=== PATIENT | male | born 1960 | race Hispanic/Latino ===

== ENCOUNTER 2023-08-09 12:22 | Emergency (ER) | payer BC, OTHER ==
[2023-08-09 13:23] LABS: Absolute Basophils 0.1 K/uL (0-0.5); Absolute Lymphocytes (CBC) 1.3 K/uL (0.7-4.9); Absolute Monocytes 0.5 K/uL (0.1-1.3); Absolute Neutrophil 5.9 K/uL (1.8-8.0); Basophils % 0.7 % (0-1.3); Eosinophils % 0.5 % (0-4.4); Hematocrit 43.6 % (39.6-49.0); Hemoglobin 14.9 g/dL (13.6-17.9); Lymphocytes % 16.8 % (15.3-44.8); MCH 30.5 pg (27.0-35.0); MCHC 34.2 g/dL (32.0-36.0); MCV 89.2 fL (80-100); MPV 7.9 fL (7.6-11.3); Monocytes % 6.9 % (3.3-12.3); Neutrophils % 75.1 % (41.7-73.7); Platelets 245 thou/uL (152-406); RBC Red Blood Cell Count 4.89 M/uL (4.33-5.43); Red Cell Distribution Width 13.4 % (12.1-15.2)
[2023-08-09 13:43] LABS: Albumin 3.8 g/dL (3.4-5.0); Albumin/Globulin Ratio 1.2 (1.1-1.8); Anion Gap 7.2 mEq/L (5.0-15.0); Bilirubin Direct 0.2 mg/dL (0-0.2); Bilirubin Indirect, Calculated 0.9 mg/dL (0.2-0.8); Bilirubin Total 1.1 mg/dL (0.2-1.0); Globulin 3.1 g/dL (2.3-3.5); Magnesium 2.1 mg/dL (1.6-2.4); Potassium 4.2 mEq/L (3.5-5.1); Protein, Total 6.9 g/dL (6.4-8.2); Troponin High Sensitivity 4.2 pg/mL (<58.9)
--- NOTE | 2023-08-09 13:45 | ER ---
Nurse's Notes [facility] Name: Joe Caballero Age: 62 yrs Sex: Male : 1960 Arrival Date: 08/09/2023 Time: 12:22 Bed 16 Private MD: Diagnosis: Lightheadedness, nausea resolved Presentation: 08/08 12:44 Chief complaint: EMS states: Toned out for lightheadedness, nausea and headache. pr1 Coronavirus screen: Vaccine status: Patient reports receiving the 2nd dose of the covid vaccine. Ebola Screen: No symptoms or risks identified at this time. Initial Sepsis Screen: Does the patient meet any 2 criteria? No. Patient's initial sepsis screen is negative. Does the patient have a suspected source of infection? No. Patient's initial sepsis screen is negative. Risk Assessment: Do you want to hurt yourself or someone else? Patient reports no desire to harm self or others. Onset of symptoms was August 09, 2023. 12:44 Method Of Arrival: EMS: [place] [id number] 12:44 Acuity: ONUR 3 [facility] 12:55 Care prior to arrival: Medication(s) given: Normal saline infusion, 400 ml zofran 4 mg. pr1 Triage Assessment: 12:47 General: Appears comfortable, well groomed, well developed, well nourished, Behavior is me1 calm, cooperative, appropriate for age, Reports became lightheaded at work then c/o headache and nausea. Given 400ml of NS and zofran 4 mg. Symptoms have resolved. Pain: Denies pain. 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 Cardiovascular: Patient's skin is warm and dry. Respiratory: Airway is patent Respiratory effort is even, unlabored, Respiratory pattern is regular, symmetrical. GI: Reports nausea. : No signs and/or symptoms were reported regarding the genitourinary system. Derm: Skin is intact, Skin is pink, warm \T\ dry. Musculoskeletal: No signs and/or symptoms reported regarding the musculoskeletal system. Historical: - Allergies: 12:47 No Known Allergies; me1 - Home Meds: 12:47 None [Active]; me1 - PMHx: 12:47 prostate cancer; me1 - PSHx: 12:47 prostatectomy; me1 - Immunization history:: Adult Immunizations up to date. - Infectious Disease History:: Denies. - Social history:: Smoking status: Patient denies any tobacco usage or history of. Screenin:56 [facility] ED Fall Risk Assessment (Adult) History of falling in the last 3 months, me1 including since admission No falls in past 3 months (0 pts) Confusion or Disorientation No (0 pts) Intoxicated or Sedated No (0 pts) Impaired Gait No (0 pts) Mobility Assist Device Used No (0 pt) Altered Elimination No (0 pt) Score/Fall Risk Level 0 - 2 = Low Risk Maintained a safe environment, Provided non-skid footwear, Hourly rounding (assess needs \T\ fall precautionary measures) done. Abuse screen: Denies threats or abuse. Nutritional screening: No deficits noted. Tuberculosis screening: No symptoms or risk factors identified. 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 Symptoms have resolved at this time. Pain: Denies pain. 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 . Cardiovascular: Capillary refill < 3 seconds Patient's skin is warm and dry. Respiratory: Airway is patent Respiratory effort is even, unlabored, Respiratory pattern is regular, symmetrical. GI: Reports nausea. GI: Abdomen is round non-distended. : No signs and/or symptoms were reported regarding the genitourinary system. Derm: Skin is intact, is healthy with good turgor, Skin is pink, warm \T\ dry. Musculoskeletal: No signs and/or symptoms reported regarding the musculoskeletal system. 14:05 Reassessment: Patient appears in no apparent distress at this time. Patient is alert, as6 oriented x 3, equal unlabored respirations, skin warm/dry/pink. Vital Signs: 12:44 BP 131 / 82; Pulse 61; Resp 18; Temp 98.4(O); Pulse Ox 95% ; Weight 81.65 kg; Height 5 me1 ft. 6 in. ; Pain 0/10; 13:08 BP 125 / 81 Supine; Pulse 60 LA; me1 13:09 BP 142 / 85 Sitting; Pulse 64; me1 13:10 BP 147 / 87 Standing; Pulse 64; me1 13:55 BP 122 / 93; Pulse 62; Resp 16; Pulse Ox 96% on R/A; me1 12:44 Body Mass Index 29.05 (81.65 kg, 167.64 cm) me1 12:44 Pain Scale: Adult pr1 ED Course: 12:43 Patient arrived in ED. me1 12:43 Jony Sky MD is Attending Physician. sp3 12:47 Triage completed. me1 12:47 Arm band placed on Patient placed in an exam room. me1 12:56 Patient has correct armband on for positive identification. Bed in low position. Call [facility] light in reach. Side rails up X 1. Provided Education on: POC. Verbalized understanding. . 12:56 Maintain EMS IV. Dressing intact. Good blood return noted. Site clean \T\ dry. Gauge \T\ me 1 site: 18g LAC. 12:56 No provider procedures requiring assistance completed. me1 13:13 Mayela Carrillo, RN is Primary Nurse. me1 13:13 Initial lab(s) drawn, by pr, sent to lab. me1 13:13 Basic Metabolic Panel Sent. me1 13:13 CBC with Diff Sent. me1 13:13 LFT's Sent. me1 13:13 Magnesium Sent. me1 13:13 Troponin HS Sent. me1 13:23 EKG done, by ED staff, reviewed by Jony Sky MD. me1 14:04 IV discontinued, intact, bleeding controlled, No redness/swelling at site. Pressure as6 dressing applied. Administered Medications: No medications were administered Medication: 12:56 VIS not applicable for this client. me1 Outcome: 13:44 Discharge ordered by . sp3 14:04 Discharged to home ambulatory, as6 14:04 Condition: stable 14:04 Discharge instructions given to patient, Instructed on discharge instructions, follow up and referral plans. Demonstrated understanding of instructions, follow-up care, 14:05 Patient left the ED. as6 Signatures: Jony Sky MD MD sp3 Darwin Lloyd, RN RN as6 Mayela Carrillo, RN RN me1
--- NOTE | 2023-08-09 13:45 | EDPHYS ---
Physician Documentation [facility] Name: Joe Caballero Age: 62 yrs Sex: Male : 1960 Arrival Date: 08/09/2023 Time: 12:22 Bed 16 Private MD: ED Physician Jony Sky HPI: 08/08 13:30 This 62 yrs old Male presents to ER via EMS with complaints of LIGHTHEADED, sp3 Nausea. 13:30 62-year-old male with history of prior prostate cancer not on any active treatments sp3 presents with chief complaint nausea and lightheadedness that started early this morning. 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 He states he has had decreased p.o. intake and increased coffee and tea recently. He denies any headache, fever, URI symptoms, chest pain, shortness of breath, abdominal pain, actual vomiting, diarrhea, syncope, focal neurological deficit or any other signs or symptoms on ROS at this time. He also denies any prolonged immobilization or travel history or known sick contacts.. Historical: - Allergies: 12:47 No Known Allergies; me1 - Home Meds: 12:47 None [Active]; me1 - PMHx: 12:47 prostate cancer; me1 - PSHx: 12:47 prostatectomy; me1 - Immunization history:: Adult Immunizations up to date. - Infectious Disease History:: Denies. - Social history:: Smoking status: Patient denies any tobacco usage or history of. ROS: 13:32 Constitutional: Negative for fever, chills, and weight loss, Eyes: Negative for injury, sp3 pain, redness, and discharge, Neck: Negative for injury, pain, and swelling, Cardiovascular: Negative for chest pain, palpitations, and edema, Respiratory: Negative for shortness of breath, cough, wheezing, and pleuritic chest pain, Back: Negative for injury and pain, : Negative for injury, bleeding, discharge, and swelling, MS/Extremity: Negative for injury and deformity, Skin: Negative for injury, rash, and discoloration, Neuro: Negative for headache, weakness, numbness, tingling, and seizure, Psych: Negative for depression, anxiety, suicide ideation, homicidal ideation, and hallucinations, Allergy/Immunology: Negative for hives, rash, and allergies, Endocrine: Negative for neck swelling, polydipsia, polyuria, polyphagia, and marked weight changes, Hematologic/Lymphatic: Negative for swollen nodes, abnormal bleeding, and unusual bruising, 13:32 All other systems are negative, Exam: 13:32 Constitutional: This is a well developed, well nourished patient who is awake, alert, sp3 and in no acute distress. Head/Face: Normocephalic, atraumatic. Eyes: Pupils equal round and reactive to light, extra-ocular motions intact. Lids and lashes normal. Conjunctiva and sclera are non-icteric and not injected. Cornea within normal limits. Periorbital areas with no swelling, redness, or edema. ENT: Nares patent. No nasal discharge, no septal abnormalities noted. External auditory canals are clear. Oropharynx with no redness, swelling, or masses, exudates, or evidence of obstruction, uvula midline. Mucous membranes moist. Neck: Trachea midline, no thyromegaly or masses palpated, and no cervical lymphadenopathy. Supple, full range of motion without nuchal rigidity, or vertebral point tenderness. No Meningismus. Chest/axilla: Normal chest wall appearance and motion. Nontender with no deformity. No lesions are appreciated. Cardiovascular: Regular rate and rhythm with a normal S1 and S2. No gallops, murmurs, or rubs. Normal PMI, no JVD. No pulse deficits. Respiratory: Lungs have equal breath sounds bilaterally, clear to auscultation and percussion. No rales, rhonchi or wheezes noted. No increased work of breathing, no retractions or nasal flaring. Abdomen/GI: Soft, non-tender, with normal bowel sounds. No distension or tympany. No guarding or rebound. No evidence of tenderness throughout. Back: No spinal tenderness. No costovertebral tenderness. Full range of motion. Skin: Warm, dry with normal turgor. Normal color with no rashes, no lesions, and no evidence of cellulitis. MS/ Extremity: Pulses equal, no cyanosis. Neurovascular intact. Full, normal range of motion. Neuro: Awake and alert, GCS 15, oriented to person, place, time, and situation. Cranial nerves II-XII grossly intact. Motor strength 5/5 in all extremities. Sensory grossly intact. Cerebellar exam normal. Normal gait. Psych: Awake, alert, with orientation to person, place and time. Behavior, mood, and affect are within normal limits. 13:32 ECG was reviewed by the Attending Physician. EKG demonstrates normal sinus rhythm at 61 bpm with normal intervals, normal axis, normal QRS, normal ST's ST segments without evidence of acute ischemia. Vital Signs: 12:44 BP 131 / 82; Pulse 61; Resp 18; Temp 98.4(O); Pulse Ox 95% ; Weight 81.65 kg; Height 5 me1 ft. 6 in. ; Pain 0/10; 13:08 BP 125 / 81 Supine; Pulse 60 LA; me1 13:09 BP 142 / 85 Sitting; Pulse 64; me1 13:10 BP 147 / 87 Standing; Pulse 64; me1 13:55 BP 122 / 93; Pulse 62; Resp 16; Pulse Ox 96% on R/A; me1 12:44 Body Mass Index 29.05 (81.65 kg, 167.64 cm) me1 12:44 Pain Scale: Adult me1 MDM: 12:46 Patient medically screened. sp3 13:32 Data reviewed: vital signs, nurses notes, lab test result(s), EKG. ED course: sp3 62-year-old male with lightheadedness and nausea not fully resolved. EKG is normal. Orthostatic vital signs are also normal. If workup is negative on blood work then we will safely discharge him home after his current normal saline 1 L is finished. Patient feels much better at this time. Clinically have ruled out acute coronary syndrome, TIA/CVA spectrum, sepsis, shock or any other critical pathology. Patient well-appearing and is asking to be discharged.. 08/08 12:46 Order name: Basic Metabolic Panel; Complete Time: 13:44 sp3 08/08 12:46 Order name: CBC with Diff; Complete Time: 13:44 3 08/08 12:46 Order name: LFT's; Complete Time: 13:44 3 08/08 12:46 Order name: Magnesium; Complete Time: 13:44 3 08/08 12:46 Order name: Troponin HS; Complete Time: 13:44 sp3 08/08 12:46 Order name: Cardiac monitoring; Complete Time: 13:23 3 08/08 12:46 Order name: EKG - Nurse/Tech; Complete Time: 13:23 sp3 08/08 12:46 Order name: IV Saline Lock; Complete Time: 13:13 sp3 08/08 12:46 Order name: Labs collected and sent; Complete Time: 13:13 sp3 08/08 12:46 Order name: O2 Sat Monitoring; Complete Time: 13:13 sp3 08/08 12:46 Order name: Orthostatics; Complete Time: 13:24 sp3 Administered Medications: No medications were administered Disposition Summary: 08/09/23 13:44 Discharge Ordered Notes: Location: Home sp3 Condition: Stable sp3 Diagnosis - Lightheadedness, nausea resolved sp3 Followup: sp3 - With: Private Physician - When: Upon discharge from the Emergency Department - Reason: Continuance of care Discharge Instructions: - Discharge Summary Sheet sp3 - Dehydration, Adult sp3 Forms: - Medication Reconciliation Form sp3 - Thank You Letter sp3 - Antibiotic Education sp3 - Prescription Opioid Use sp3 - Patient Portal Instructions sp3 - Leadership Thank You Letter sp3 - Work release form as6 Signatures: Dispatcher [employer] EDJony Sherman MD MD sp3 Mayela Carrillo RN RN me1 Corrections: (The following items were deleted from the chart) 12:47 12:47 BASIC METABOLIC PANEL+C.LAB.BRZ ordered. EDMS EDMS 12:47 12:47 CBC+H.LAB.BRZ ordered. EDMS EDMS 12:47 12:47 HEPATIC FUNCTION+C.LAB.BRZ ordered. EDMS EDMS 12:47 12:47 MAGNESIUM+C.LAB.BRZ ordered. EDMS EDMS 12:47 12:47 Troponin High Sensitivity+C.LAB.BRZ ordered. EDMS EDMS 13:35 13:32 Data reviewed: vital signs, nurses notes, lab test result(s), EKG, radiologic sp3 studies, sp3 13:35 13:32 ED course: 62-year-old male with lightheadedness and nausea not fully resolved. sp3 EKG is normal. Orthostatic vital signs are also normal. If workup is negative on blood work then we will safely discharge him home after his current normal saline 1 L is finished. Patient feels much better at this time. Clinically have ruled out acute coronary syndrome, TIA/CVA spectrum, sepsis, shock or any other critical pathology. Patient well-appearing and is asking to be discharged.. sp3
[2023-08-09 19:28] VITALS: BP 122/93; TEMP 98.4; O2SAT 96
== END 2023-08-09 14:05 | disposition home or self-care (01) ==
LOC: ER 12:22
DX: R42 Dizziness and giddiness (principal); Z85.46 Personal history of malignant neoplasm of prostate
CPT/HCPCS: 36415; 80048; 80076; 83735; 84484; 85025; 93005; 99284